=== PATIENT | female | born 1950 | race Caucasian/White ===

== ENCOUNTER 2020-07-07 09:24 | Outpatient (CLI) | payer MEDICARE, SELFPAY ==
--- NOTE | 2020-07-07 09:34 | MM_ITS ---
WS: [id number] BILATERAL SCREENING DIGITAL MAMMOGRAM WITH CAD HISTORY: SCREENING COMPARISON: 03/06/2019 and 01/19/2017 Bilateral CC and MLO views submitted. Computer aided detection analyzed. Breast composition: There are scattered areas of fibroglandular density. No suspicious masses, microc alcifications or architectural distortion. Benign calcifications in each breast. MM/[place] [id number] IMPRESSION: BI-RADS: 2-Benign FOLLOW UP: 1 Year Follow-up
== END 2020-07-07 09:25 | disposition home or self-care (01) ==
PROVIDERS: PCP Electrodiagnostic Medicine; Visit Provider Electrodiagnostic Medicine
DX: Z12.31 Encounter for screening mammogram for malignant neoplasm of breast (principal)
CPT/HCPCS: 77067

== ENCOUNTER → 2020-09-09 10:10 | Outpatient (BNVA) | payer MEDICARE, SELFPAY | PROVIDERS: PCP Electrodiagnostic Medicine; Visit Provider Electrodiagnostic Medicine | DX: Z20.828 Contact with and (suspected) exposure to other viral communicable diseases (principal) | CPT/HCPCS: 87635 ==

== ENCOUNTER 2021-08-17 14:59 | Outpatient (CLI) | payer MEDICARE, SELFPAY ==
--- NOTE | 2021-08-17 15:05 | MM_ITS ---
WS: [id number] BILATERAL DIGITAL SCREENING MAMMOGRAPHY WITH CAD CLINICAL INFORMATION: SCREENING HISTORY: Screening mammogram. No current complaints. COMPARISON: July 07, 2020 TECHNIQUE: Bilateral CC and MLO views. FINDINGS: Scattered fibroglandular densities bilaterally. Punctate and lucent centered calcifications. No suspi cious focal mass, asymmetry, calcifications, or architectural distortion. No evidence of malignancy. MM/[place] [id number] IMPRESSION: BI-RADS: 2-Benign FOLLOW UP: 1 Year Follow-up Recommend return to annual screening mammography.
== END 2021-08-17 15:00 | disposition home or self-care (01) ==
LOC: RADSHAW 15:01
PROVIDERS: PCP Electrodiagnostic Medicine; Visit Provider Electrodiagnostic Medicine
DX: Z12.31 Encounter for screening mammogram for malignant neoplasm of breast (principal)
CPT/HCPCS: 77067

== ENCOUNTER 2021-11-02 09:43 | Outpatient (CLI) | payer MEDICARE, SELFPAY ==
[2021-11-02 09:55] VITALS: BP 127/74; PULSE 88; RESP 20; TEMP 36.6; O2SAT 95
[2021-11-02 09:57] VITALS: BP 127/74; PULSE 88; RESP 20; TEMP 36.6; O2SAT 93; BMI 29.9
[2021-11-02 10:15] VITALS: BP 107/70; PULSE 75; RESP 18; TEMP 37.1; O2SAT 91
[2021-11-02 11:22] VITALS: BP 92/64; PULSE 77; RESP 18; TEMP 37; O2SAT 92
== END 2021-11-02 09:44 | disposition home or self-care (01) ==
LOC: OPS 09:45
PROVIDERS: PCP Electrodiagnostic Medicine; Visit Provider Electrodiagnostic Medicine
DX: U07.1 COVID-19 (principal)
CPT/HCPCS: 96365

== ENCOUNTER 2022-08-29 10:41 | Outpatient (CLI) | payer MEDICARE, SELFPAY ==
--- NOTE | 2022-08-29 10:50 | MM_ITS ---
WS: [id number] BILATERAL SCREENING DIGITAL TOMOSYNTHESIS MAMMOGRAM WITH CAD HISTORY: SCREENING COMPARISON: 08/17/2021, 07/07/2020 Bilateral CC and MLO views with tomosynthesis and synthetic mammography submitted. Computer aided det ection analyzed. Breast composition: There are scattered areas of fibroglandular density. No suspicious masses, microc alcifications or architectural distortion. Benign calcifications in each breast. MM/[place] [id number] IMPRESSION: BI-RADS: 2-Benign FOLLOW UP: 1 Year Follow-up
== END 2022-08-29 10:42 | disposition home or self-care (01) ==
LOC: RAD 10:42
PROVIDERS: PCP Electrodiagnostic Medicine; Visit Provider Electrodiagnostic Medicine
DX: Z12.31 Encounter for screening mammogram for malignant neoplasm of breast (principal)
CPT/HCPCS: 77063; 77067

== ENCOUNTER 2023-04-17 12:47 | Outpatient (CLI) | payer MEDICARE, SELFPAY ==
--- NOTE | 2023-04-17 12:59 | XR_ITS ---
WS: [id number] DEXA (DUAL ENERGY X-RAY ABSORPTIOMETRY) Bone mineral density was performed using a [employer] machine. HISTORY: POSTMENOPAUSAL COMPARISON: None available. Lumbar spine BMD (L1-L3): 1.213 T score: 0.4 Z score: 1.4 Total hip BMD: Left: 0.809 g/cm2. T score: -1.6 Z score: -0.4 Right: 0.820 g/cm2. T score: -1.5 Z score: -0.3 10 year probability of a major osteoporotic fracture is 11% Compared to the prior study from 10/06/2017. Lumbar spine bone mineral density has increased by 13.7%. Bilateral hips bone mineral density has decreased by 2.2%. XR/XR DEXA axial skeleton* [id number] IMPRESSION: OSTEOPENIA based upon the WHO classification for females. Significant decrease in bone mineral density within the hips. Increased BMD wit hin the lumbar spine.
== END 2023-04-17 12:48 | disposition home or self-care (01) ==
PROVIDERS: PCP Electrodiagnostic Medicine; Visit Provider Physician Assistant
DX: Z78.0 Asymptomatic menopausal state (principal); M85.80 Other specified disorders of bone density and structure, unspecified site
CPT/HCPCS: 77080

== ENCOUNTER 2023-09-01 11:15 | Outpatient (CLI) | payer MEDICARE, SELFPAY ==
--- NOTE | 2023-09-01 11:28 | MM_ITS ---
WS: [id number] BILATERAL 3D TOMOSYNTHESIS DIGITAL SCREENING MAMMOGRAPHY WITH CAD CLINICAL INFORMATION: SCREENING HISTORY: Screening mammogram. No current complaints. COMPARISON: 2021 TECHNIQUE: Bilateral CC and MLO views. FINDINGS: Scattered fibroglandular densities bilaterally. Increasing clustered calcifications upper outer RIGHT breast. Recommend spot magnification views. Benign punctate and lucent centered calcifications bilat erally. No other suspicious findings. IMPRESSION: MM/[place] [id number] BI-RADS: 0-Incomplete: Need additional imaging evaluation FOLLOW UP: Need Additional Imaging Recommend spot magnification views of the increasing clustered calcifications R IGHT breast
== END 2023-09-01 11:16 | disposition home or self-care (01) ==
LOC: RAD 11:16
PROVIDERS: PCP Electrodiagnostic Medicine; Visit Provider Electrodiagnostic Medicine
DX: Z12.31 Encounter for screening mammogram for malignant neoplasm of breast (principal)
CPT/HCPCS: 77063; 77067

== ENCOUNTER 2023-10-09 13:38 | Outpatient (CLI) | payer MEDICARE, SELFPAY ==
--- NOTE | 2023-10-09 14:05 | MM_ITS ---
WS: [id number] RIGHT 3D TOMOSYNTHESIS DIGITAL MAMMOGRAPHY WITH CAD CLINICAL INFORMATION: ABNORMAL MAMMO HISTORY: Additional views COMPARISON: 09/01/2023 TECHNIQUE: 3 views of the right breast were obtained. FINDINGS: Scattered fibroglandular densities of the right breast. Heterogeneous increasing clustered calcificat ions upper outer RIGHT breast. These are indeterminate recommend further evaluation with stereotactic guided biopsy. No other suspicious findings. IMPRESSION: MM/[place] [id number] BI-RADS: 4-Suspicious Finding-Biopsy Should Be Considered FOLLOW UP: Stereotactic Biopsy Recommended
== END 2023-10-09 13:39 | disposition home or self-care (01) ==
LOC: RAD 13:38
PROVIDERS: PCP Electrodiagnostic Medicine; Visit Provider Electrodiagnostic Medicine
DX: R92.8 Other abnormal and inconclusive findings on diagnostic imaging of breast (principal)
CPT/HCPCS: 77061; G0279

== ENCOUNTER 2024-01-02 12:47 | Outpatient (CLI) | payer MEDICARE, SELFPAY ==
--- NOTE | 2024-01-02 12:59 | MM_ITS ---
WS: [id number] STEREOTACTIC RIGHT BREAST BIOPSY WITH VACUUM ASSISTANCE HISTORY: RT BREAST CALCS COMPARISON: 10/09/2023, 09/01/2023 Procedure, risks and complications were explained to the patient. Medications and prior radiographs a re reviewed. Upper outer quadrant RIGHT breast calcifications are located. Calcifications are targeted in the cran iocaudal projection. The skin is cleansed with ChloraPrep and anesthetized with 1% buffered lidocaine . Deeper soft tissues anesthetized with a combination of lidocaine and epinephrine. Small dermatome i s made. Needle advanced into the RIGHT breast. Stereotactic imaging reveals appropriate positioning a djacent calcifications. Multiple vacuum-assisted core biopsies are obtained. No complications were en countered. Post biopsy specimen radiograph reveals numerous calcifications. Biopsy clip is placed in the cavity. Post imaging reveals good placement of the clip. No migration. Pressures held for approximately 15 minutes. No bleeding. Dressing applied. Patient discharged with n o complications. There is no bleeding. With any questions or complications patient is to return. IMPRESSION: 1. Uncomplicated RIGHT breast stereotactic biopsy. 2. Specimen contains numerous calcifications. MM/[place] [id number] Pathology: Fat necrosis with histiocytosis and microcalcifications. Benign amy st parenchyma. Negative for malignancy. RECOMMENDATION: Diagnostic RIGHT mammogram follow-up in 6 months.
--- NOTE | 2024-01-02 13:15 | MM_ITS ---
WS: [id number] STEREOTACTIC RIGHT BREAST BIOPSY WITH VACUUM ASSISTANCE HISTORY: RT BREAST CALCS COMPARISON: 10/09/2023, 09/01/2023 Procedure, risks and complications were explained to the patient. Medications and prior radiographs a re reviewed. Upper outer quadrant RIGHT breast calcifications are located. Calcifications are targeted in the cran iocaudal projection. The skin is cleansed with ChloraPrep and anesthetized with 1% buffered lidocaine . Deeper soft tissues anesthetized with a combination of lidocaine and epinephrine. Small dermatome i s made. Needle advanced into the RIGHT breast. Stereotactic imaging reveals appropriate positioning a djacent calcifications. Multiple vacuum-assisted core biopsies are obtained. No complications were en countered. Post biopsy specimen radiograph reveals numerous calcifications. Biopsy clip is placed in the cavity. Post imaging reveals good placement of the clip. No migration. Pressures held for approximately 15 minutes. No bleeding. Dressing applied. Patient discharged with n o complications. There is no bleeding. With any questions or complications patient is to return. IMPRESSION: 1. Uncomplicated RIGHT breast stereotactic biopsy. 2. Specimen contains numerous calcifications. MM/[place] [id number] Pathology: Fat necrosis with histiocytosis and microcalcifications. Benign amy st parenchyma. Negative for malignancy. RECOMMENDATION: Diagnostic RIGHT mammogram follow-up in 6 months.
--- NOTE | 2024-01-02 13:15 | MM_ITS ---
WS: [id number] STEREOTACTIC RIGHT BREAST BIOPSY WITH VACUUM ASSISTANCE HISTORY: RT BREAST CALCS COMPARISON: 10/09/2023, 09/01/2023 Procedure, risks and complications were explained to the patient. Medications and prior radiographs a re reviewed. Upper outer quadrant RIGHT breast calcifications are located. Calcifications are targeted in the cran iocaudal projection. The skin is cleansed with ChloraPrep and anesthetized with 1% buffered lidocaine . Deeper soft tissues anesthetized with a combination of lidocaine and epinephrine. Small dermatome i s made. Needle advanced into the RIGHT breast. Stereotactic imaging reveals appropriate positioning a djacent calcifications. Multiple vacuum-assisted core biopsies are obtained. No complications were en countered. Post biopsy specimen radiograph reveals numerous calcifications. Biopsy clip is placed in the cavity. Post imaging reveals good placement of the clip. No migration. Pressures held for approximately 15 minutes. No bleeding. Dressing applied. Patient discharged with n o complications. There is no bleeding. With any questions or complications patient is to return. IMPRESSION: 1. Uncomplicated RIGHT breast stereotactic biopsy. 2. Specimen contains numerous calcifications. MM/MM surgical specimen RT Pathology: Fat necrosis with histiocytosis and microcalcifications. Benign am[address] parenchyma. Negative for malignancy. RECOMMENDATION: Diagnostic RIGHT mammogram follow-up in 6 months.
== END 2024-01-02 12:48 | disposition home or self-care (01) ==
LOC: RAD 12:47
PROVIDERS: PCP Electrodiagnostic Medicine; Visit Provider Electrodiagnostic Medicine
DX: N64.1 Fat necrosis of breast (principal); R92.0 Mammographic microcalcification found on diagnostic imaging of breast
CPT/HCPCS: 19081; 77065; 88305; J7050

== ENCOUNTER 2024-07-09 13:57 | Outpatient (CLI) | payer MEDICARE, SELFPAY ==
--- NOTE | 2024-07-09 14:04 | MM_ITS ---
WS: [id number] DIAGNOSTIC RIGHT DIGITAL TOMOSYNTHESIS MAMMOGRAPHY WITH CAD. HISTORY: ABNORMAL MAMMOGRAM, 6-month follow-up stereotactic biopsy. COMPARISON: 01/02/2024, 10/09/2023, 08/29/2022 Technique: CC, MLO and ML views. Magnification views RIGHT CC. Breast composition: There are scattered areas of fibroglandular density. Biopsy clip anterior RIGHT breast upper outer quadrant is identified. The previously biopsied calcifi cations have significantly decreased in their burden. Essentially resolved. There are additional dania gn calcifications within the breast. No mass or distortion. MM/[place] [id number] IMPRESSION: BI-RADS: 2 - Benign. FOLLOW UP: 1 Year Follow-up
== END 2024-07-09 13:58 | disposition home or self-care (01) ==
LOC: RAD 14:00
PROVIDERS: PCP Electrodiagnostic Medicine; Visit Provider Electrodiagnostic Medicine
DX: R92.8 Other abnormal and inconclusive findings on diagnostic imaging of breast (principal); R92.323 Mammographic fibroglandular density, bilateral breasts; R92.1 Mammographic calcification found on diagnostic imaging of breast
CPT/HCPCS: 77061; G0279

== ENCOUNTER 2025-04-02 09:13 | Outpatient (CLI) | payer MEDICARE, SELFPAY ==
--- NOTE | 2025-04-02 09:18 | USCV_ITS ---
Thompson Mikayla Age: 74 Gender: F : 1950 Exam Date: 04/02/2025 09:34 Ordering Phys: Yusuf Cary DO Technologist: LEVAR Exam Location: [facility] Indication: Murmur BP: 125 / 75 HR: 68 Rhythm: Sinus Technical Quality: Adequate MEASUREMENTS (Male / Female) Normal Values 2D ECHO LV Diastolic Diameter PLAX 5.3 cm 4.2 - 5.9 / 3.9 - 5.3 cm IVS Diastolic Thickness 0.7 cm 0.6 - 1.0 / 0.6 - 0.9 cm IVS Systolic Thickness 1.2 cm LVPW Diastolic Thickness 0.7 cm 0.6 - 1.0 / 0.6 - 0.9 cm LVPW Systolic Thickness 1.4 cm LVOT Diameter 2.0 cm LV Ejection Fraction 2D Teich 56.1 % LV Ejection Fraction MOD 4C 62.8 % LV Ejection Fraction MOD 2C 60.1 % LV Ejection Fraction 2C AL 61.4 % LA Diameter 3.6 cm RA Systolic Volume 4C AL 27.9 ml RA Systolic Volume 4C MOD 26.8 ml LA Sys Volume AL 46.2 cm cubed LA Sys Volume Index AL 22.7 cm cubed/m squared Aorta at Sinotubular Diameter 2.4 cm IVC Diameter 2.4 cm M-MODE LA Ao Ratio MM 1.7 AV Cusp Separation MM 1.3 cm DOPPLER AV Peak Velocity 149.0 cm/s LVOT Peak Velocity 91.0 cm/s AV Area Cont Eq vti 2.2 cm squared AV Area Cont Eq pk 1.8 cm squared MV Peak Velocity 120.0 cm/s MV Area PHT 3.3 cm squared Mitral E to A Ratio 0.8 TV Peak Velocity 91.5 cm/s TR Peak Velocity 127.0 cm/s TR Peak Gradient 6.5 mmHg TV Peak E Velocity 66.0 cm/s PV Peak Velocity 104.0 cm/s FINDINGS Left Ventricle Normal left ventricular size, systolic function and wall thickness, with no regional wall motion abnormalities. Left ventricular ejection fraction is estimated at 60 %. Grade I/IV diastolic dysfunction (abnormal relaxation filling pattern), normal to mildly elevated filling pressures. Right Ventricle The right ventricle is normal in size and function. Right Atrium The right atrium is normal in size. Left Atrium The left atrium is normal in size. Mitral Valve Mildly thickened mitral valve. Trace mitral valve regurgitation. No mitral valve stenosis. Aortic Valve Mild aortic valve calcification. No aortic valve stenosis. Trace aortic valve regurgitation. Tricuspid Valve Structurally normal tricuspid valve without significant stenosis or regurgitation. Pulmonary artery systolic pressure is normal. Pulmonic Valve Structurally normal pulmonic valve without significant stenosis. There is no pulmonic regurgitation. Pericardium Normal pericardium without effusion. Aorta Normal ascending aorta dimension. IVC The inferior vena cava appears normal. CONCLUSIONS Normal left ventricular size, systolic function and wall thickness, with no regional wall motion abnormalities. Left ventricular ejection fraction is estimated at 60 %. Grade I/IV diastolic dysfunction (abnormal relaxation filling pattern), normal to mildly elevated filling pressures. No significant valve abnormalities. There is no pericardial effusion. Right atrial pressure is around 5 mm of mercury. Zackery Granados MD (Electronically Signed) Final Date: 07 April 2025 19:58 S
== END 2025-04-02 09:14 | disposition home or self-care (01) ==
LOC: RAD 09:16
PROVIDERS: PCP Electrodiagnostic Medicine; Visit Provider Electrodiagnostic Medicine
DX: R01.1 Cardiac murmur, unspecified (principal); R93.1 Abnormal findings on diagnostic imaging of heart and coronary circulation; I05.9 Rheumatic mitral valve disease, unspecified; I35.8 Other nonrheumatic aortic valve disorders
CPT/HCPCS: 93306